=== PATIENT | female | born 1950 | race American Indian/Alaskan Native ===

== ENCOUNTER 2016-07-10 13:50 | Outpatient (CLI) | payer MEDICARE ==
--- NOTE | 2016-07-10 14:34 | XRay Report ---
CHEST 2 VIEWS INDICATION: Reactive PPD. COMPARISON: None similar at this institution. FINDINGS: PA and lateral chest radiographs demonstrate normal cardiomediastinal silhouette. Clear lungs. Thoracic spondylosis and mild levocurvature apex about T9. CONCLUSION: No acute disease in the chest. Thank you for the opportunity to participate in this patient's care.
== END 2016-07-10 13:51 | disposition home or self-care (01) ==
LOC: XRAY 13:50
PROVIDERS: ATTEND Internal Medicine
DX: R76.11 Nonspecific reaction to tuberculin skin test without active tuberculosis (principal); M47.894 Other spondylosis, thoracic region; M43.8X4 Other specified deforming dorsopathies, thoracic region
CPT/HCPCS: 71020

== ENCOUNTER 2021-01-13 12:49 | Observation (INO) | payer MEDICARE ==
--- NOTE | 2021-01-13 14:21 | XRay Report ---
CHEST 1 VIEW 01/13/2021 1:14 PM INDICATION / CLINICAL INFORMATION: Syncope. COMPARISON: 07/10/2016 FINDINGS: SUPPORT DEVICES: None. HEART / MEDIASTINUM: No significant abnormality. LUNGS / PLEURA: No significant pulmonary or pleural abnormality. No pneumothorax. ADDITIONAL FINDINGS: No significant additional findings. IMPRESSION: 1. No acute findings. Signer Name: Leandro Miner MD Signed: 01/13/2021 2:17 PM Workstation Name: [email or web address]
--- NOTE | 2021-01-13 14:23 | Emergency Department Report ---
ED Syncope HPI - General Chief Complaint: Syncope Stated Complaint: SYNCOPE Time Seen by Provider: 01/13/21 13:36 Source: patient Exam Limitations: no limitations - History of Present Illness Initial Comments: 70-year-old female with past medical history hypertension and diabetes presents to the hospital with syncopal episodes. Patient was in the park a lot at her doctor's office when she was found passed out slumped over the wheel. Patient states she was trying to park the car and then states she just stopped. She intermittently remembers people asking if she is okay. She is brought into the doctor's office. In the doctor's office she refused transport to the hospital formerly [facility], had a witnessed unresponsive/syncopal episode there. She then agreed to hospital transport. Patient is alert and oriented in route to the hospital. Upon transfer the this gesture patient seemed to slump and became altered again. Upon my initial contact patient is slurring her speech but responsive. She has bilateral upper and lower extremity weakness and has minimal antigravity effort. She does not have any facial droop. She complains of a mild headache. She states yesterday she accidentally struck her head on a cabinet but denied LOC. Patient was placed supine. Within 5 minutes of my contact she was speaking clearly with 5/5 upper and lower extremity strength. She denied headache or, chest pain, or shortness of breath. Patient did not take her BP medication today because she ran out but has been compliant with her other meds. Vital signs in route and upon arrival without significant abnormalities and glucose in the 287 as per EMS - Related Data Allergies/Adverse Reactions: Allergies No Known Allergies Allergy (Unverified 07/10/16 13:51) ED Review of Systems ROS: Stated complaint: SYNCOPE Other details as noted in HPI Comment: All other systems reviewed and negative ED Past Medical Hx - Past Medical History Hx Hypertension: Yes Hx Diabetes: Yes - Surgical History Past Surgical History?: No ED Physical Exam - General Limitations: No Limitations - Other Other exam information: General: No acute distress Head: Atraumatic Eyes: normal appearance, pupils equal reactive to light ENT: Moist mucous membranes Neck: Normal appearance, no midline tenderness Chest: Clear to auscultation bilaterally CV: Regular rate and rhythm Abdomen: Soft, normal bowel sounds, nontender, nondistended, no rebound or guarding Back: Normal inspection Extremity: Normal inspection, full range of motion Neuro: Initial contact slurred speech, mild lethargy, minimum antigravity strength of upper and lower extremities however, the symptoms wax and wane between abnormal and alert O x 3, no facial asymmetry, speech clear, no gross motor sensory deficit Psych: Appropriate behavior Skin: No rash ED Course Vital Signs 01/13/21 01/13/21 01/13/21 13:19 13:45 14:01 Temperature 97.7 F Pulse Rate 88 85 67 Respiratory 16 15 11 L Rate Blood Pressure 148/81 168/78 Blood Pressure 136/88 [Left] O2 Sat by Pulse 99 100 96 Oximetry - Reevaluation(s) Reevaluation #1: 01/13/21 After patient had an x-ray and when she was placed upright I went into the room and once again she was altered with slurred speech and weakness. Called a code stroke at that time to initiate rapid work-up and neurologic evaluation - Consultations Consultation #1: 01/13/21 15:29 Case discussed with teleradiologist Dr. Helm. He agrees Keppra should be administered for possible seizure activity since emergent stroke work-up is unremarkable and patient is nonfocal. ED Medical Decision Making - Lab Data Result diagrams: 01/13/21 13:57 01/13/21 13:57 Lab Results 01/13/21 01/13/21 01/13/21 Range/Units 13:57 13:57 13:57 WBC 11.5 H (4.5-11.0) K/mm3 RBC 4.30 (3.65-5.03) M/mm3 Hgb 13.7 (10.1-14.3) gm/dl Hct 41.1 (30.3-42.9) % MCV 96 (79-97) fl MCH 32 (28-32) pg MCHC 33 (30-34) % RDW 12.9 L (13.2-15.2) % Plt Count 362 (140-440) K/mm3 Lymph % (Auto) 31.0 (13.4-35.0) % [place] % (Auto) 5.5 (0.0-7.3) % Eos % (Auto) 0.8 (0.0-4.3) % Baso % (Auto) 0.5 (0.0-1.8) % Lymph # (Auto) 3.6 (1.2-5.4) K/mm3 [place] # (Auto) 0.6 (0.0-0.8) K/mm3 Eos # (Auto) 0.1 (0.0-0.4) K/mm3 Baso # (Auto) 0.1 (0.0-0.1) K/mm3 Seg Neutrophils % 62.2 (40.0-70.0) % Seg Neutrophils # 7.1 (1.8-7.7) K/mm3 PT 13.3 (12.2-14.9) Sec. INR 0.96 (0.87-1.13) APTT 29.1 (24.2-36.6) Sec. Sodium 139 (137-145) mmol/L Potassium 4.7 (3.6-5.0) mmol/L Chloride 102.4 (98-107) mmol/L Carbon Dioxide 23 (22-30) mmol/L Anion Gap 18 mmol/L BUN 9 (7-17) mg/dL Creatinine 0.8 (0.6-1.2) mg/dL Estimated GFR > 60 ml/min BUN/Creatinine Ratio 11 % Glucose 181 H (65-100) mg/dL POC Glucose (70-105) mg/dL Calcium 9.8 (8.4-10.2) mg/dL Total Bilirubin 0.40 (0.1-1.2) mg/dL AST 18 (5-40) units/L ALT 15 (7-56) units/L Alkaline Phosphatase 56 (35-129) units/L Troponin T < 0.010 (0.00-0.029) ng/mL Total Protein 7.6 (6.3-8.2) g/dL Albumin 4.5 (3.9-5) g/dL Albumin/Globulin Ratio 1.5 % 01/13/21 Range/Units 14:00 WBC (4.5-11.0) K/mm3 RBC (3.65-5.03) M/mm3 Hgb (10.1-14.3) gm/dl Hct (30.3-42.9) % MCV (79-97) fl MCH (28-32) pg MCHC (30-34) % RDW (13.2-15.2) % Plt Count (140-440) K/mm3 Lymph % (Auto) (13.4-35.0) % [place] % (Auto) (0.0-7.3) % Eos % (Auto) (0.0-4.3) % Baso % (Auto) (0.0-1.8) % Lymph # (Auto) (1.2-5.4) K/mm3 [place] # (Auto) (0.0-0.8) K/mm3 Eos # (Auto) (0.0-0.4) K/mm3 Baso # (Auto) (0.0-0.1) K/mm3 Seg Neutrophils % (40.0-70.0) % Seg Neutrophils # (1.8-7.7) K/mm3 PT (12.2-14.9) Sec. INR (0.87-1.13) APTT (24.2-36.6) Sec. Sodium (137-145) mmol/L Potassium (3.6-5.0) mmol/L Chloride (98-107) mmol/L Carbon Dioxide (22-30) mmol/L Anion Gap mmol/L BUN (7-17) mg/dL Creatinine (0.6-1.2) mg/dL Estimated GFR ml/min BUN/Creatinine Ratio % Glucose (65-100) mg/dL POC Glucose 169 H (70-105) mg/dL Calcium (8.4-10.2) mg/dL Total Bilirubin (0.1-1.2) mg/dL AST (5-40) units/L ALT (7-56) units/L Alkaline Phosphatase (35-129) units/L Troponin T (0.00-0.029) ng/mL Total Protein (6.3-8.2) g/dL Albumin (3.9-5) g/dL Albumin/Globulin Ratio % - EKG Data -: EKG Interpreted by [place] EKG shows normal: sinus rhythm, ST-T waves (no stemi) Rate: normal - Radiology Data Radiology results: report reviewed Chest x-ray: No acute findings CT head: No acute findings CT angiogram head and neck: No acute findings - Medical Decision Making 70-year-old female presents to the hospital transient alteration mental status with slurred speech and generalized weakness. Patient is conscious during these episodes and I have not witnessed hamilton syncope. Emergent stroke work-up unremarkable. No arrhythmia noted on EKG on monitor during episodes. Vital signs remained stable during episodes. Questionable seizure activity suspected. Neurologist obtain history that patient has had a work-up with a EEG in the past. Agrees with KATHIA Gold. Patient will be admitted to the hospital for further evaluation and monitoring. Critical Care Time: Yes Critical care time in (mins) excluding proc time.: 35 Critical care attestation.: If time is entered above; I have spent that time in minutes in the direct care of this critically ill patient, excluding procedure time. ED Disposition Clinical Impression: Slurring of speech, Transient alteration of awareness, HTN (hypertension), Diabetes Disposition: ADMITTED INPATIENT Is pt being admited?: Yes Condition: Stable Instructions: Diabetes Mellitus Type 2 in Adults (ED), Hypertension (ED) Referrals: PRIMARY CARE, [Primary Care Provider] - 3-5 Days Time of Disposition: 15:37 (Dr Tucker/Hosptialist)
--- NOTE | 2021-01-13 14:41 | Cat Scan Report ---
CT head/brain wo con INDICATION: Syncope. TECHNIQUE: Routine CT head. All CT scans at this location are performed using CT dose reduction for A EYAD by means of automated exposure control. COMPARISON: None. FINDINGS: Intracranial: [place]-white matter differentiation is maintained. No intracranial hemorrhage. No extra a xial collection. No hydrocephalus. No herniation. Sella is slightly expanded by CSF. Sinuses: Paranasal sinuses and mastoid air cells are essentially clear. Orbits: Globes are intact. Calvarium: No acute fracture. IMPRESSION: 1. No acute intracranial abnormality. Signer Name: William Berry MD Signed: 01/13/2021 2:37 PM Workstation Name: [id number]
[2021-01-13 14:43] LABS: Alanine Aminotransferase 15 units/L (7-56); Albumin 4.5 g/dL (3.9-5); BUN/Creatinine Ratio 11; Blood Urea Nitrogen 9 mg/dL (7-17); Calcium 9.8 mg/dL (8.4-10.2); Hemolysis Index 6
--- NOTE | 2021-01-13 15:02 | Cat Scan Report ---
CTA head: Please see the report of the CTA neck Signer Name: Wilber Spear MD Signed: 01/13/2021 2:58 PM Workstation Name: [id number]
--- NOTE | 2021-01-13 15:02 | Cat Scan Report ---
CTA NECK WITH CONTRAST HISTORY: Intermittent slurred speech; generalized weakness; hit head; syncope COMPARISON: None. TECHNIQUE: Routine CTA of the neck was performed. 3-D/MIP reformats were postprocessed. Percentage s tenosis is determined by direct quantitative measurements of diseased internal carotid artery diamete r compared with normal distal internal carotid artery reference segments or by criteria similar to NA SCET where applicable.All CT scans at this location are performed using CT dose reduction for ALARA b y means of automated exposure control CONTRAST: 100 ml of Omnipaque 350 FINDINGS: Aortic arch: No significant abnormality. Cervical vertebral arteries: No significant abnormality. Common carotid arteries: No significant abnormality. Carotid bifurcations: Normal Cervical internal carotid arteries: No significant abnormality. Additional findings: None. IMPRESSION: 1. No significant abnormality. CTA HEAD WITH CONTRAST FINDINGS: CTA Head: Intracranial vertebral arteries: No significant abnormality. Basilar artery: No significant abnormality. Posterior cerebral arteries: No significant abnormality. Intracranial internal carotid arteries: No significant abnormality. Anterior cerebral arteries: Fenestration in the A1 segments bilaterally near the midline; no aneurysm ; A2 segments are normal Middle cerebral arteries: No significant abnormality. Dural venous sinuses:Not optimally opacified. No significant abnormality. Additional findings: None. IMPRESSION: 1. No significant abnormality. CODE STROKE: Time of Communication ([employer]/CDT): 1:57 PM Central daylight saving time Licensed Practitioner Receiving Report: ER physician Signer Name: Wilber Spear MD Signed: 01/13/2021 2:57 PM Workstation Name: [email or web address]
[2021-01-13 15:06] LABS: Basophils # (Auto) 0.1 K/mm3 (0.0-0.1); Basophils % (Auto) 0.5 % (0.0-1.8); Eosinophils # (Auto) 0.1 K/mm3 (0.0-0.4); Eosinophils % (Auto) 0.8 % (0.0-4.3); Hematocrit 41.1 % (30.3-42.9); Hemoglobin 13.7 gm/dl (10.1-14.3); Lymphocytes # (Auto) 3.6 K/mm3 (1.2-5.4); Mean Corpuscular HGB Conc 33 % (30-34); Mean Corpuscular Volume 96 fl (79-97); Monocytes # (Auto) 0.6 K/mm3 (0.0-0.8); Monocytes % (Auto) 5.5 % (0.0-7.3); Platelet Count 362 K/mm3 (140-440); Red Cell Distribution Width 12.9 % (13.2-15.2)
[2021-01-13 15:26] LABS: INR 0.96 (0.87-1.13)
[2021-01-13 15:27] LABS: Partial Thromboplastin Time 29.1 Sec. (24.2-36.6)
[2021-01-13] MEDS ORDERED: levETIRAcetam 1000 MG/NS 0.75% 1,000 MG/100 ML BAG IV ONE (15:28)
--- NOTE | 2021-01-13 15:36 | History and Physical Report ---
Medications and Allergies Allergies Allergy/AdvReac Type Severity Reaction Status Date / Time No Known Allergies Allergy Unverified 07/10/16 13:51 Active Meds: Active Medications Levetiracetam (Keppra 1,000 Mg/Ns 0.75% 100ml) 1,000 mg in 100 mls @ 400 mls/hr IV ONCE ONE Stop: 01/13/21 15:42 Physical Examination - Vital Signs Vital Signs: Vital Signs Temp Pulse Resp BP Pulse Ox 97.7 F 88 16 136/88 99 01/13/21 13:19 01/13/21 13:19 01/13/21 13:19 01/13/21 13:19 01/13/21 13:19 Results - Laboratory Findings CBC and BMP: 01/13/21 13:57 01/13/21 13:57 Abnormal Lab Findings: Abnormal Labs 01/13/21 01/13/21 01/13/21 13:57 13:57 14:00 WBC 11.5 H RDW 12.9 L Glucose 181 H POC Glucose 169 H Assessment and Plan [facility] Consult Note # Demographics Consult Type: Acute Stroke Level 1 (0-4.5 hrs) Patient Location: Emergency Room First Name: Lian Last Name: Christophe Date of : 1950 Age: 70 Gender: Female Facility: [facility] Time of Initial Page ( Time): 01/13/2021, 14:12 Time of Return Call ( Time): 01/13/2021, 14:13 # HPI History: 70 yo woman went to with recurrent episdoes of syncope today. According to patient she has been having these spells over the past year. She cons some time feel them coming on. she does not fall down or lose consciousness. Her speech is slurred afterwards. She has been admitted for these spells in the past. # Scores Time of exam and NIHSS ( Time): 01/13/2021, 14:35 Level of Consciousness 1a: [0] = Alert; keenly responsive LOC Questions 1b: [0] = Answers both questions correctly LOC Commands 1c: [0] = Performs both tasks correctly Best Gaze 2: [0] = Normal Visual 3: [0] = No visual loss Facial Palsy 4: [0] = Normal symmetrical movements Motor Arm Left 5a: [0] = No drift Motor Arm Right 5b: [0] = No drift Motor Leg Left 6a: [0] = No drift Motor Leg Right 6b: [0] = No drift Limb Ataxia 7: [0] = Absent Sensory 8: [0] = Normal Best Language 9: [0] = No aphasia Dysarthria 10: [0] = Normal Extinction and Inattention 11: [0] = No abnormality NIHSS Total: 0 # Exam SBP: 158 DBP: 85 # PMH-FH-SH Past Medical History: Diabetes hypertension # Data Head CT: no bleed CTA Head: no large vessel occlusion # Assessment Impression: Recurrent episodes of decreased level of consciousness. Symptoms most concerning for seizures. # Plan Thrombolytic/Intervention: NOT IV Thrombolysis or IA Intervention candidate Thrombolytic/Intraarterial Exclusion: IV thrombolytic and IA intervention considered but not recommended as this patient's symptoms are not clinically consistent with an assumed diagnosis of stroke Other: telemetry monitoring I have discussed my recommendations with the referring provider Additional Recommendations: : Start on Keppra 1000 mg x 1 followed by 500 mg BID EEG Seizure precautions including no driving Follow-up with neurology as outpatient Disposition: admit # [employer] Telemedicine: Interactive 2 way audio and visual telecommunication technology was utilized during this visit
[2021-01-13] MEDS ORDERED: ACETAMINOPHEN 325 MG TAB PO PRN (19:42)
[2021-01-13] MEDS ORDERED: ONDANSETRON 4 MG/2 ML INJ IV PRN (19:42)
[2021-01-13] MEDS ORDERED: METOCLOPRAMIDE 10 MG/2 ML INJ IV PRN (19:44)
[2021-01-13] MEDS ORDERED: HYDROmorphone 1 MG/1 ML INJ IV PRN (19:44)
[2021-01-13] MEDS ORDERED: oxyCODONE /ACETAMINOPHEN 5-325MG TAB PO PRN (19:44)
[2021-01-13] MEDS ORDERED: SODIUM CHLORIDE 0.9% 1000 ML 1,000 ML IV SCH (19:45)
--- NOTE | 2021-01-13 19:48 | History and Physical Report ---
History of Present Illness Date of examination: 01/13/21 Date of admission: 01/13/21 15:38 Chief complaint: Multiple syncopal episodes from this a.m. and slurred speech History of present illness: 70-year-old female with past medical history of hypertension and diabetes. Apparently passed out at least 3 times from the doctor's parking lot followed by a syncopal episode in the doctor's office and then while in route. Patient does not remember these episodes. Patient has slurred speech after recovering from the syncopal episodes. Patient was transported by EMS to the emergency room from the doctor's office. Never had similar episodes in the past. Denies any weakness in upper and lower extremities. Patient agrees about slurred speech following the syncopal episodes. No chest pain no diaphoresis or palpitations. No other exacerbating or precipitating factors. No fever or chills. No diplopia. No nasal regurgitation of fluids. No unsteadiness. ED course-patient dilated for code stroke and imaging studies were done - Past Medical History --Hypertension: Yes --Diabetes: Yes - Surgical History Past Surgical History?: No -Family history --Htn Social history does not smoke and no alcohol Review of Systems ROS: Constitutional no weight loss or weight gain no fever or chills HEENT no sore throat no post nasal drip no diplopia Neck no neck stiffness no lymph gland enlargement Chest and lungs no shortness of breath cough or wheezing CVS no chest pain no diaphoresis no palpitations GI no nausea no vomiting no diarrhea Genitourinary system no dysuria no flank pain Musculoskeletal system no muscle pains no joint pains GRID [employer]IMMER syncopal episodes x3 and slurred speech Skin no rash no itching Psychiatric no depression no homicidal or suicidal tendencies Hematologic no lymphedema or bruising Endocrine no polydipsia no polyuria no cold intolerance no heat intolerance Medications and Allergies Allergies Allergy/AdvReac Type Severity Reaction Status Date / Time No Known Allergies Allergy Verified 01/13/21 19:50 Exam - Constitutional Vitals: Temp Pulse Resp BP Pulse Ox 97.7 F 73 14 126/66 98 01/13/21 13:19 01/13/21 18:01 01/13/21 18:01 01/13/21 18:01 01/13/21 18:01 General appearance: Present: no acute distress, well-nourished - EENT Eyes: Present: PERRL ENT: hearing intact, clear oral mucosa - Neck Neck: Present: supple, normal ROM - Respiratory Respiratory effort: normal Respiratory: bilateral: CTA - Cardiovascular Heart rate: 78 Rhythm: regular Heart Sounds: Present: S1 & S2. Absent: rub, click - Extremities Extremities: no ischemia, pulses intact, pulses symmetrical, No edema Peripheral Pulses: within normal limits - Abdominal General gastrointestinal: Present: soft, non-tender, non-distended, normal bowel sounds Female genitourinary: Present: normal - Integumentary Integumentary: Present: clear, warm, dry - Musculoskeletal Musculoskeletal: gait normal, strength equal bilaterally - Psychiatric Psychiatric: appropriate mood/affect, intact judgment & insight, cooperative - Neurologic Neurologic: CNII-XII intact, moves all extremities - Allied Health Allied health notes reviewed: nursing, case management HEART Score - HEART Score History: Slightly suspicious Age: > 65 Risk factors: 1-2 risk factors Troponin: Troponin T < 0.010 ng/mL (0.00-0.029) 01/13/21 13:57 Troponin: < normal limit - Critical Actions Critical Actions: 0-3 pts:0.9-1.7%risk of adverse cardiac event.Candidate for discharge Results - Labs CBC & Chem 7: 01/14/21 04:51 01/14/21 04:51 Labs: Laboratory Last Values WBC 11.5 K/mm3 (4.5-11.0) H 01/13/21 13:57 RBC 4.30 M/mm3 (3.65-5.03) 01/13/21 13:57 Hgb 13.7 gm/dl (10.1-14.3) 01/13/21 13:57 Hct 41.1 % (30.3-42.9) 01/13/21 13:57 MCV 96 fl (79-97) 01/13/21 13:57 MCH 32 pg (28-32) 01/13/21 13:57 MCHC 33 % (30-34) 01/13/21 13:57 RDW 12.9 % (13.2-15.2) L 01/13/21 13:57 Plt Count 362 K/mm3 (140-440) 01/13/21 13:57 Lymph % (Auto) 31.0 % (13.4-35.0) 01/13/21 13:57 Sac % (Auto) 5.5 % (0.0-7.3) 01/13/21 13:57 Eos % (Auto) 0.8 % (0.0-4.3) 01/13/21 13:57 Baso % (Auto) 0.5 % (0.0-1.8) 01/13/21 13:57 Lymph # (Auto) 3.6 K/mm3 (1.2-5.4) 01/13/21 13:57 Sac # (Auto) 0.6 K/mm3 (0.0-0.8) 01/13/21 13:57 Eos # (Auto) 0.1 K/mm3 (0.0-0.4) 01/13/21 13:57 Baso # (Auto) 0.1 K/mm3 (0.0-0.1) 01/13/21 13:57 Seg Neutrophils % 62.2 % (40.0-70.0) 01/13/21 13:57 Seg Neutrophils # 7.1 K/mm3 (1.8-7.7) 01/13/21 13:57 PT 13.3 Sec. (12.2-14.9) 01/13/21 13:57 INR 0.96 (0.87-1.13) 01/13/21 13:57 APTT 29.1 Sec. (24.2-36.6) 01/13/21 13:57 Sodium 139 mmol/L (137-145) 01/13/21 13:57 Potassium 4.7 mmol/L (3.6-5.0) 01/13/21 13:57 Chloride 102.4 mmol/L (98-107) 01/13/21 13:57 Carbon Dioxide 23 mmol/L (22-30) 01/13/21 13:57 Anion Gap 18 mmol/L 01/13/21 13:57 BUN 9 mg/dL (7-17) 01/13/21 13:57 Creatinine 0.8 mg/dL (0.6-1.2) 01/13/21 13:57 Estimated GFR > 60 ml/min 01/13/21 13:57 BUN/Creatinine Ratio 11 % 01/13/21 13:57 Glucose 181 mg/dL (65-100) H 01/13/21 13:57 POC Glucose 169 mg/dL (70-105) H 01/13/21 14:00 Calcium 9.8 mg/dL (8.4-10.2) 01/13/21 13:57 Total Bilirubin 0.40 mg/dL (0.1-1.2) 01/13/21 13:57 AST 18 units/L (5-40) 01/13/21 13:57 ALT 15 units/L (7-56) 01/13/21 13:57 Alkaline Phosphatase 56 units/L (35-129) 01/13/21 13:57 Troponin T < 0.010 ng/mL (0.00-0.029) 01/13/21 13:57 Total Protein 7.6 g/dL (6.3-8.2) 01/13/21 13:57 Albumin 4.5 g/dL (3.9-5) 01/13/21 13:57 Albumin/Globulin Ratio 1.5 % 01/13/21 13:57 Short CBC 01/13/21 01/14/21 Range/Units 13:57 04:51 WBC 11.5 H 9.3 (4.5-11.0) K/mm3 Hgb 13.7 12.5 (10.1-14.3) gm/dl Hct 41.1 36.1 (30.3-42.9) % Plt Count 362 302 (140-440) K/mm3 BMP 01/13/21 01/14/21 13:57 04:51 Sodium 139 139 Potassium 4.7 4.0 Chloride 102.4 104.6 Carbon Dioxide 23 24 BUN 9 9 Creatinine 0.8 0.8 Glucose 181 H 178 H Calcium 9.8 8.7 Cardiac Enzymes 01/13/21 Range/Units 13:57 Troponin T < 0.010 (0.00-0.029) ng/mL Liver Function 01/13/21 01/14/21 Range/Units 13:57 04:51 Total Bilirubin 0.40 0.50 (0.1-1.2) mg/dL AST 18 15 (5-40) units/L ALT 15 12 (7-56) units/L Alkaline Phosphatase 56 48 (35-129) units/L Albumin 4.5 3.8 L (3.9-5) g/dL - Imaging and Cardiology EKG: report reviewed (Sinus rhythm no acute ST-T wave changes) Imaging and Cardiology: Chest x-ray No acute findings head CT Acute intracranial abnormalities CTA neck and head no acute findings Assessment and Plan Advance Directives: Yes (Full code) VTE prophylaxis?: Chemical Plan of care discussed with patient/family: Yes - Patient Problems (1) TIA (transient ischemic attack) Current Visit: Yes Status: Acute Plan to address problem: TIA work-up including echocardiogram Carotid duplex scan not done because of the neck CTA and head CT were done Neurology consult MRI for possible embolic strokes (2) Hypertension Current Visit: Yes Status: Acute (3) HTN (hypertension) Current Visit: Yes Status: Chronic Qualifiers: Hypertension type: primary hypertension Qualified Code(s): I10 - Essential (primary) hypertension Plan to address problem: Blood pressure is normal now No home medications with antihypertensives Start on antihypertensives if necessary (4) T2DM (type 2 diabetes mellitus) Current Visit: Yes Status: Chronic Qualifiers: Diabetes mellitus equipment [employer] insulin use: unspecified [facility] insulin use status Plan to address problem: Coverage for now No home medications Medications to be reconciled Check hemoglobin A1c (5) DVT prophylaxis Current Visit: Yes Status: Acute Plan to address problem: On anticoagulation and GI prophylax
[2021-01-13] MEDS ORDERED: ASPIRIN 325 MG TAB PO SCH (20:00)
[2021-01-14] MEDS: FAMOTIDINE 20 MG TAB PO SCH ×2 (00:30→11:00)
[2021-01-14] MEDS ORDERED: INSULIN LISPRO 100 UNIT/ML SUB-Q ONE (02:30)
[2021-01-14] MEDS: HEPARIN 5,000 UNIT/1 ML VIAL SUB-Q SCH ×2 (03:15→10:57)
[2021-01-14 05:50] LABS: Basophils # (Auto) 0.1 K/mm3 (0.0-0.1); Basophils % (Auto) 0.6 % (0.0-1.8); Eosinophils # (Auto) 0.2 K/mm3 (0.0-0.4); Eosinophils % (Auto) 1.9 % (0.0-4.3); Hematocrit 36.1 % (30.3-42.9); Hemoglobin 12.5 gm/dl (10.1-14.3); Lymphocytes # (Auto) 4.2 K/mm3 (1.2-5.4); Lymphocytes % (Auto) 45.5 % (13.4-35.0); Mean Corpuscular HGB Conc 35 % (30-34); Mean Corpuscular Volume 96 fl (79-97); Monocytes # (Auto) 0.6 K/mm3 (0.0-0.8); Monocytes % (Auto) 6.7 % (0.0-7.3); Platelet Count 302 K/mm3 (140-440); Red Blood Count 3.77 M/mm3 (3.65-5.03); Red Cell Distribution Width 12.7 % (13.2-15.2)
[2021-01-14 06:10] LABS: Alanine Aminotransferase 12 units/L (7-56); Albumin 3.8 g/dL (3.9-5); BUN/Creatinine Ratio 11; Blood Urea Nitrogen 9 mg/dL (7-17); Calcium 8.7 mg/dL (8.4-10.2); Chol/HDL Ratio 2.39 %; HDL Cholesterol 38 mg/dL (40-59); Hemolysis Index 9; LDL Cholesterol,Direct 42 mg/dL (50-130)
--- NOTE | 2021-01-14 08:44 | Consultation ---
History of Present Illness Consult date: 01/14/21 Reason for Consult: Recurrent syncopy History of present illness: Multiple syncopal episodes from this a.m. and slurred speech History of present illness: 70-year-old female with past medical history of hypertension and diabetes. Apparently passed out at least 3 times from the doctor's parking lot followed by a syncopal episode in the doctor's office and then while in route. Patient does not remember these episodes. Patient has slurred speech after recovering from the syncopal episodes. Patient was transported by EMS to the emergency room from the doctor's office. 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 Patient agrees about slurred speech following the syncopal episodes. No chest pain no diaphoresis or palpitations. No other exacerbating or precipitating factors. No fever or chills. No diplopia. No nasal regurgitation of fluids. No unsteadiness. ED course-patient dilated for code stroke and imaging studies were done -In ER Vital are stable -EKG is wnl -CT brain and CTA brain and neck are unremarkable -MRI brain today is unremarkable echo is with EF#60% -NIH#0 -LDL#42 -she is started on asa and Lipitor - Past Medical History --Hypertension: Yes --Diabetes: Yes - Surgical History Past Surgical History?: No -Family history --Htn Social history does not smoke and no alcohol Review of Systems ROS: Constitutional no weight loss or weight gain no fever or chills HEENT no sore throat no post nasal drip no diplopia Neck no neck stiffness no lymph gland enlargement Chest and lungs no shortness of breath cough or wheezing CVS no chest pain no diaphoresis no palpitations GI no nausea no vomiting no diarrhea Genitourinary system no dysuria no flank pain Musculoskeletal system no muscle pains no joint pains [employer] syncopal episodes x3 and slurred speech Skin no rash no itching Psychiatric no depression no homicidal or suicidal tendencies Hematologic no lymphedema or bruising Endocrine no polydipsia no polyuria no cold intolerance no heat intolerance Medications and Allergies Allergies Allergy/AdvReac Type Severity Reaction Status Date / Time No Known Allergies Allergy Verified 01/13/21 19:50 Medications and Allergies Allergies Allergy/AdvReac Type Severity Reaction Status Date / Time No Known Allergies Allergy Verified 01/13/21 19:50 Home Medications Medication Instructions Recorded Confirmed Last Taken Type AtorvaSTATin [Lipitor] 10 mg PO QHS 01/14/21 01/14/21 01/13/21 History Ibuprofen [Ibu-200] 400 mg PO PRN PRN 01/14/21 01/14/21 Unknown History Insulin NPH/Regular [NovoLIN 70/30] 10 units SQ BID 01/14/21 01/14/21 01/13/21 History Lisinopril/Hydrochlorothiazide 1 tab PO QDAY 01/14/21 01/14/21 01/13/21 History [Zestoretic 20-12.5 mg] Metformin HCl [metFORMIN] 1,000 mg PO BID 01/14/21 01/14/21 01/13/21 History Polyethylene Glycol 400 [Blink 1 drop OU PRN PRN 01/14/21 01/14/21 Unknown History Tears] glipiZIDE [Glucotrol] 10 mg PO BID 01/14/21 01/14/21 01/13/21 History Active Meds: Active Medications Acetaminophen (Acetaminophen 325 Mg Tab) 650 mg PO Q4H PRN PRN Reason: Pain MILD(1-3)/Fever >100.5/SIMONS Aspirin (Aspirin 325 Mg Tab) 325 mg PO QDAY [facility] Last Admin: 01/14/21 00:30 Dose: 325 mg Documented by: Atorvastatin Calcium (Atorvastatin 40 Mg Tab) 40 mg PO QHS [facility] Last Admin: 01/14/21 00:30 Dose: 40 mg Documented by: Famotidine (Famotidine 20 Mg Tab) 20 mg PO BID [facility] Last Admin: 01/14/21 00:30 Dose: 20 mg Documented by: Heparin Sodium (Porcine) (Heparin 5,000 Unit/1 Ml Vial) 5,000 unit SUB-Q Q12HR [facility] Last Admin: 01/14/21 03:15 Dose: Not Given Documented by: Hydromorphone HCl (Hydromorphone 1 Mg/1 Ml Inj) 0.5 mg IV Q3H PRN PRN Reason: Pain , Severe (7-10) Sodium Chloride (Nacl 0.9% 1000 Ml) 1,000 mls @ 75 mls/hr IV DIRECT JOSE Stop: 01/14/21 08:45 Insulin Human Lispro (Insulin Lispro 100 Unit/Ml) 0 unit SUB-Q ACHS JOSE; Protocol Metoclopramide HCl (Metoclopramide 10 Mg/2 Ml Inj) 10 mg IV Q6H PRN PRN Reason: Nausea And Vomiting Ondansetron HCl (Ondansetron 4 Mg/2 Ml Inj) 4 mg IV Q8H PRN PRN Reason: Nausea And Vomiting Oxycodone/Acetaminophen (Oxycodone /Acetaminophen 5-325mg Tab) 1 tab PO Q6H PRN PRN Reason: Pain, Moderate (4-6) Sodium Chloride (Sodium Chloride 0.9% 10 Ml Flush Syringe) 10 ml IV BID JOSE Sodium Chloride (Sodium Chloride 0.9% 10 Ml Flush Syringe) 10 ml IV PRN PRN PRN Reason: LINE FLUSH Sodium Chloride (Sodium Chloride 0.9% 10 Ml Flush Syringe) 10 ml IV PRN PRN PRN Reason: LINE FLUSH Physical Examination - Vital Signs Vital Signs: Vital Signs Temp Pulse Resp BP Pulse Ox 97.7 F 88 16 136/88 99 01/13/21 13:19 01/13/21 13:19 01/13/21 13:19 01/13/21 13:19 01/13/21 13:19 - Constitutional General appearance: comfortable - EENT EENT: Present: PERRL, mucous membranes moist - Respiratory Respiratory: Present: chest non-tender, lungs clear, rhonchi - Cardiovascular Cardiovascular: Present: regular rate, normal S1, normal S2 Extremities: Present: no peripheral edema bilatateraly, no clubbing, cyanosis - Gastrointestinal Gastrointestinal: Present: normoactive bowel sounds - Integumentary Integumentary: Present: normal - Neurologic Cranial nerve examination: PERRL, EOMI, intact Speech examination: intact Sensorimotor examination: intact Detailed motor examination: grossly full strength in - Level of Consciousness 1a. Level of Consciousness: alert/keenly responsive - LOC Questions 1b. LOC Questions: answers both correctly - LOC Command 1c. LOC Commands: performs tasks correctly - Best Gaze 2. Best Gaze: normal - Visual 3. Visual: no visual loss - Facial Palsy 4. Facial Palsy: normal symmetrical movement - Motor Arm 5a. Motor Arm Left: no drift 5b. Motor Arm Right: no drift - Motor Leg 6a. Motor Leg Left: no drift 6b. Motor Leg Right: no drift - Limb Ataxia 7. Limb Ataxia: absent - Sensory 8. Sensory: normal - Dysarthria 10. Dysarthria: normal - Extinction and Inattention 11. Extinction/Inattention: no abnormality Results - Laboratory Findings CBC and BMP: 01/14/21 04:51 01/14/21 04:51 Abnormal Lab Findings: Abnormal Labs 01/13/21 01/13/21 01/13/21 13:57 13:57 14:00 WBC 11.5 H MCH MCHC RDW 12.9 L Lymph % (Auto) Glucose 181 H POC Glucose 169 H Hemoglobin A1c Albumin LDL Cholesterol Direct HDL Cholesterol 01/14/21 01/14/21 01/14/21 02:33 04:51 04:51 WBC MCH 33 H MCHC 35 H RDW 12.7 L Lymph % (Auto) 45.5 H Glucose 178 H POC Glucose 198 H Hemoglobin A1c Albumin 3.8 L LDL Cholesterol Direct 42 L HDL Cholesterol 38 L 01/14/21 01/14/21 04:51 08:27 WBC MCH MCHC RDW Lymph % (Auto) Glucose POC Glucose 211 H Hemoglobin A1c 10.9 H Albumin LDL Cholesterol Direct HDL Cholesterol Assessment and Plan - Patient Problems # 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 Seizure vs Anxiety can not be excluded - presented to ER vital stable -CT brain and CTA brain and neck are unremarkable -Brain MRI is normal -Echo with EF#60% -EEG is pending -Consider keppra 500 mg bid -Seizure precaution, no driving -EEG - cardiac monitering -Neurology follow up -Conisder Celexa 20 mg daily -ASA 81 mg daily -LDL#42 # HTN (hypertension) -Blood pressure is normal now -No home medications with antihypertensives -Start on antihypertensives if necessary #T2DM (type 2 diabetes mellitus) -Coverage for now -No home medications -Medications to be reconciled -Check hemoglobin A1c (5) DVT prophylaxis -On anticoagulation and GI prophylax PLAN 1- EEG 2- Keppra 500 mg po bid 3- Celexa 20 mg daily 4- seizure precaution 5- no driving 6- Neurology follow up 7- maintain asa 81 mg daily 8- check for orthostatic changes 9- consider MCOT since pt. lives alone and cardiology follow up will follow as needed
[2021-01-14] MEDS: INSULIN LISPRO 100 UNIT/ML SUB-Q SCH ×3 (10:56→18:25)
--- NOTE | 2021-01-14 11:24 | Magnetic Resonance Report ---
MRI BRAIN WITHOUT CONTRAST INDICATION / CLINICAL INFORMATION: stroke, FAINTING SPELLS. TECHNIQUE: Multiplanar, multisequence MR images of the brain were obtained. COMPARISON: Head CT on 01/13/2021 FINDINGS: BRAIN / INTRACRANIAL CONTENTS: No acute ischemia, acute hemorrhage, mass effect, midline shift, or hy drocephalus. No chronic infarct. Age-commensurate generalized ventricular and cisternal/sulcal promi nence without discrete superimposed focal atrophy. Age-commensurate small foci of cerebral white kyler er FLAIR hyperintensity. CRANIOCERVICAL JUNCTION: No significant abnormality. VASCULAR FLOW-VOIDS: No significant abnormality. ORBITS: No significant abnormality of visualized orbits. SINUSES / MASTOIDS: No significant abnormality of visualized sinuses and mastoid air cells. ADDITIONAL FINDINGS: None. IMPRESSION: 1. No acute findings or findings to explain patient's symptoms. Signer Name: Christofer Rios MD Signed: 01/14/2021 11:20 AM Workstation Name: [id number]
[2021-01-14] MEDS ORDERED: CITALOPRAM 20 MG TAB PO SCH (15:00)
[2021-01-14] MEDS ORDERED: levETIRAcetam 500 MG/5 ML ORAL LIQD PO SCH (15:00)
[2021-01-14 21:18] VITALS: BP 142/61
[2021-01-15] MEDS ORDERED: ASPIRIN 325 MG TAB PO SCH (10:00)
== END 2021-01-14 20:35 | disposition home or self-care (01) ==
LOC: ED 12:49 → INTOOBSV 15:38 → 4A 15:38
PROVIDERS: ADMIT Internal Medicine; ATTEND Internal Medicine
DX: G45.9 Transient cerebral ischemic attack, unspecified (principal); I10 Essential (primary) hypertension; E11.9 Type 2 diabetes mellitus without complications; R47.81 Slurred speech; R29.700 NIHSS score 0; M79.89 Other specified soft tissue disorders
CPT/HCPCS: 36415; 70450; 70496; 70498; 70551; 71045; 80053; 80061; 82962; 83036; 84484; 85025; 85610; 85730; 93306; 96374; 97161; 99291; A9270; G0378; J1953; Q9967